=== PATIENT | male | born 1990 | race Caucasian/White ===

== ENCOUNTER 2017-01-21 12:55 | Emergency (ER) | payer MEDICAID, OTHER ==
[~2017-01-21 12:55] MED LIST: Z.0.NO CURRENT MEDS; ZITH500T PO
[2017-01-21 12:57] VITALS: BP 142/77; PULSE 80; RESP 15; TEMP 98.2; O2SAT 98
--- NOTE | 2017-01-21 13:27 | PD ---
HPI Chief Complaint: Injury Time Seen by Provider: 13:27 Travel History International Travel<30 days: No Contact w/Intl Traveler<30days: No Traveled to known affect area: No History of Present Illness HPI 26-year-old male presents to the emergency department for evaluation right hand injury that occurred just a couple of hours ago when he punched the floor twice. Patient states he has some pain in the left fourth and fifth digits. He denies any loss of range of motion. Patient has no medical problems and takes no medications. He denies any other injury. Patient has no other complaints at this time. PFSH Past Medical History Autoimmune Disease: No Cancer: Yes (RIGHT KIDNEY) Cardiovascular Problems: Yes (fluid around heart 2007) Diabetes: No Glaucoma: No Genitourinary: Yes (right kidney removed at 18 months, wilm's tumor, treated with chemo) Hepatitis: No Hiatal Hernia: No Hypertension: No Musculoskeletal: No Neurologic: No Psychiatric: Yes (bipolar) Respiratory: No Immunizations Current: Yes Thyroid Disease: No Past Surgical History Abdominal Surgery: No Cardiac Surgery: No Ear Surgery: No Endocrine Surgery: No Eye Surgery: No Genitourinary Surgery: Yes (RIGHT NEPHRECTOMY 1993) Gynecologic Surgery: No Oral Surgery: No Pacemaker: No Thoracic Surgery: No Social History Alcohol Use: Yes (4-5/ DAY) Tobacco Use: Yes (7 CIGS PER DAY) Substance Use: No Allergies-Medications (Allergen,Severity, Reaction): Uncoded Allergies: PLASTIC TAPE (Adverse Reaction, Severe, RASH AND HIVES, 03/31/12) Reported Meds & Prescriptions Reported Meds & Active Scripts Active Zithromax (Azithromycin) 500 Mg Tab 1 Tab PO DAILY Reported No Current Meds (Miscellaneous Medication) Misc Review of Systems Except as stated in HPI: all other systems reviewed are Neg Physical Exam Narrative GENERAL: Well-nourished, well-developed male patient, ambulatory. Afebrile. SKIN: Focused skin assessment warm/dry. Patient has small ecchymosis on the right fourth finger over the dorsal aspect of the MCP joint. No lacerations or abrasions. HEAD: Normocephalic. Atraumatic. EYES: No scleral icterus. No injection or drainage. NECK: Supple, trachea midline. No JVD or lymphadenopathy. CARDIOVASCULAR: Regular rate and rhythm without murmurs, gallops, or rubs. Right radial pulse 2+. Capillary refill less than 2 seconds to the distal aspect of all digits of the right hand. RESPIRATORY: Breath sounds equal bilaterally. No accessory muscle use. Lungs sounds are clear to auscultation. GASTROINTESTINAL: Abdomen soft, non-tender, nondistended. MUSCULOSKELETAL: No cyanosis, or edema. Patient has full range of motion of all digits of the right hand. No significant pain to palpation. BACK: Nontender without obvious deformity. No CVA tenderness. Data Data Last Documented VS Vital Signs Date Time Temp Pulse Resp B/P Pulse Ox O2 Delivery O2 Flow Rate FiO2 01/21/17 13:27 89 18 98 Room Air 01/21/17 12:57 98.2 142/77 Orders Hand, Complete ([id number]) (01/21/17 ) Ibuprofen (Motrin) (01/21/17 14:00) MDM Medical Decision Making Medical Screen Exam Complete: Yes Emergency Medical Condition: Yes Medical Record Reviewed: Yes Interpretation(s) Last Impressions Hand X-Ray 01/21/17 0000 Signed Impressions: Service Date/Time: Saturday, January 21, 2017 13:27 - CONCLUSION: No acute disease. Zechariah Nielsen MD Differential Diagnosis Contusion versus fracture versus sprain versus dislocation Narrative Course 26-year-old male presents to the emergency department for evaluation of right fourth and fifth finger injury after he punched the floor twice. Physical exam is reassuring. Patient has full range of motion. No obvious deformity. No significant pain to palpation. X-ray of the right hand shows no acute disease. Patient is instructed to use ice and he'll be discharged with a prescription for ibuprofen. Patient is given ibuprofen 800 mg by mouth in the emergency department. He verbalizes agreement and understanding. The patient was discharged in stable condition with instructions, including return instructions and follow up instructions. Diagnosis Primary Impression: Contusion of right hand, initial encounter Referrals: Primary Care Physician call for appointment Patient Instructions: Contusion in Adults (ED), General Instructions Additional Instructions: Take ibuprofen as instructed as needed with food for pain. Ice for 20 minutes 4-5 times daily. Follow-up with your primary care physician. Return to the emergency department for any acute worsening of symptoms. Med/Other Pt SpecificInfo: Prescription(s) given Scripts Ibuprofen 800 Mg [id number] Mg PO TID PRN (PAIN SCALE 1 TO 10) #21 TAB Ref 0 Prov:Mariluz Calvillo 01/21/17 Disposition: 01 DISCHARGE HOME Condition: Stable Mariluz Calvillo Jan 21, 2017 13:27
--- NOTE | 2017-01-21 13:41 | RADRPT ---
EXAM DATE/TIME: 01/21/2017 13:27 [facility] COMPARISON: No previous studies available for comparison. INDICATIONS : Pain from punching the floor. MEDICAL HISTORY : None. SURGICAL HISTORY : None. ENCOUNTER: Initial ACUITY: 1 day PAIN SCORE: 7/10 LOCATION: Right third metacarpal. FINDINGS: Three view examination of the right hand demonstrates no soft tissue swelling, dislocation, or fractu re. The carpal bones appear intact. The interphalangeal and metacarpophalangeal joints are intact. Bony mineralization is normal. CONCLUSION: No acute disease. Zechariah Nielsen MD on January 21, 2017 at 13:36 Board Certified Radiologist. This report was verified electronically.
[2017-01-21] MEDS ORDERED: IBUP800T23 PO (14:00)
[2017-01-21] MEDS ORDERED: IBUPROFEN 800 MG TAB PO ONE (14:00)
== END 2017-01-21 14:10 | disposition home or self-care (01) ==
LOC: NEPE 12:55
DX: S60.221A Contusion of right hand, initial encounter (principal); W22.09XA Striking against other stationary object, initial encounter
CPT/HCPCS: 73130; 99283